=== PATIENT | female | born 1960 | race Hispanic/Latino ===

== ENCOUNTER 2017-06-11 23:26 | Emergency (ER) | payer OTHER ==
[2017-06-11] MEDS ORDERED: METOPROLOL TARTRATE 1 MG/ML 5ML VIAL IV ONE (23:48)
[2017-06-11] MEDS ORDERED: HYDROXYZINE HCL 25 MG TABLET ONE (23:48)
== END 2017-06-12 01:04 | disposition home or self-care (01) ==
LOC: EDH 23:26
DX: F41.9 Anxiety disorder, unspecified (principal); E78.5 Hyperlipidemia, unspecified; I10 Essential (primary) hypertension; Z88.5 Allergy status to narcotic agent; Z88.6 Allergy status to analgesic agent; V49.49XA Driver injured in collision with other motor vehicles in traffic accident, initial encounter; Y93.89 Activity, other specified; Y92.89 Other specified places as the place of occurrence of the external cause; Y99.8 Other external cause status
CPT/HCPCS: 71045; 93005; 96374; 99284; J3490

== ENCOUNTER 2022-07-05 13:44 | Emergency (ER) | payer OTHER ==
[~2022-07-05] VITALS: Ht 154.9 cm; Wt 70.3 kg
[2022-07-05 14:37] LABS: BILIRUBIN,URINE 0.5 mg/dL (NEGATIVE); COLOR,URINE DARK-YELLOW (YELLOW); GLUCOSE, URINE (UA) NEGATIVE (NEGATIVE); KETONES,URINE 150 mg/dL (NEGATIVE); LEUKOCYTE ESTERASE ,URINE 250 Leu/uL (NEGATIVE); NITRATE,URINE NEGATIVE (NEGATIVE); OCCULT BLOOD,URINE MODERATE (NEGATIVE); PH,URINE 5.5 (5.0-8.0); PROTEIN,URINE 30 mg/dL (NEGATIVE); UROBILINOGEN,URINE 3 mg/dL (0.2-1.0)
[2022-07-05 14:42] LABS: APPEARANCE,URINE HAZY (CLEAR)
[2022-07-05 14:50] LABS: BACTERIA,URINE FEW /HPF (None Seen); MUCUS,URINE MANY LPF (None Seen); RBC,URINE 26-50 /HPF (0-1); SQUAMOUS EPITHELIAL CELL,UR MANY /HPF (0-2)
[2022-07-05] MEDS ORDERED: ONDANSETRON 4MG INJ IV ONE (15:00)
[2022-07-05] MEDS ORDERED: FENTANYL CITRATE PF 50 MCG/1 ML 2ML VIAL IVP ONE (15:00)
[2022-07-05 15:04] LABS: BASOPHILS % (AUTO) 0.2 % (0.0-5.0); EOSINOPHILS % (AUTO) 0.5 % (0.0-8.0); HEMATOCRIT 44.8 % (36-48); LYMPHOCYTES % (AUTO) 20.3 % (21.0-51.0); MEAN CORPUSCULAR HEMOGLOBIN 29.3 pg (27.0-33.0); MEAN CORPUSCULAR HGB CONC 33.5 g/dL (32.0-36.0); MEAN CORPUSCULAR VOLUME 87.5 fL (79-99); MONOCYTES % (AUTO) 5.9 % (3.0-13.0); NEUTROPHILS % (AUTO) 72.7 % (40.0-77.0); PLATELET COUNT (AUTO) 278 K/uL (130-400); RED BLOOD CELL COUNT(AUTO) 5.12 MIL/uL (4.00-5.50); RED CELL DISTRIBUTION WIDTH 13.3 % (11.0-15.5); WHITE BLOOD COUNT (AUTO) 14.7 K/uL (4.8-10.8)
[2022-07-05 15:16] LABS: POTASSIUM 3.6 mmol/L (3.5-5.1)
[2022-07-05 15:20] LABS: ALBUMIN 3.7 g/dL (3.5-5.0); TOTAL PROTEIN, SERUM 8.4 g/dL (6.0-8.3)
[2022-07-05] MEDS ORDERED: IOHEXOL-350 75 ML VIAL IV ONE (15:52)
[2022-07-05] MEDS ORDERED: ZOSYN 3.375GM +NS 50ML IVPB SCH (16:30)
[2022-07-05] MEDS ORDERED: METR375C2 PO (16:39)
[2022-07-05] MEDS ORDERED: OXYC-38 PO (16:39)
[2022-07-05] MEDS ORDERED: DOCU-116 PO (16:39)
[2022-07-05] MEDS ORDERED: CIPR-278 PO (16:39)
[2022-07-05 16:50] VITALS: BP 132/78
== END 2022-07-05 17:00 | disposition home or self-care (01) ==
LOC: EDH 13:44
DX: K57.32 Diverticulitis of large intestine without perforation or abscess without bleeding (principal); R10.32 Left lower quadrant pain; I10 Essential (primary) hypertension; E78.00 Pure hypercholesterolemia, unspecified; Z88.8 Allergy status to other drugs, medicaments and biological substances; Z90.710 Acquired absence of both cervix and uterus; Z90.49 Acquired absence of other specified parts of digestive tract
CPT/HCPCS: 99285; 74177; 96365; 96375; 80053; 85025; 87077; 87088; 87186; 81001; 36415; J3010; J2405; J2543; Q9967

== ENCOUNTER 2024-10-04 12:57 | Emergency (ER) | payer OTHER ==
[~2024-10-04] VITALS: Ht 154.9 cm; Wt 70.3 kg
[~2024-10-04 12:57] MED LIST: CIPR-278 PO; DOCU-116 PO; METR375C2 PO; OXYC-38 PO
[2024-10-04 13:49] LABS: APPEARANCE,URINE CLOUDY (CLEAR); GLUCOSE, URINE (UA) NEGATIVE (NEGATIVE); LEUKOCYTE ESTERASE ,URINE 500 Leu/uL (NEGATIVE); NITRATE,URINE NEGATIVE (NEGATIVE); OCCULT BLOOD,URINE MODERATE (NEGATIVE)
[2024-10-04 13:57] LABS: ADD UA MICROSCOPIC YES
[2024-10-04 14:00] LABS: SQUAMOUS EPITHELIAL CELL,UR FEW /HPF (0-2)
--- NOTE | 2024-10-04 14:09 | EKG ---
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
[2024-10-04 14:24] LABS: IMMATURE GRANULOCYTE ABSOLUTE 0.02 K/uL (0-1); NUCLEATED RED BLOOD CELLS 0.0 % (0.0-0.19); PLATELET COUNT (AUTO) 292 K/uL (130-400); RED BLOOD CELL COUNT(AUTO) 5.07 MIL/uL (4.00-5.50); RED CELL DISTRIBUTION WIDTH 13.4 % (11.0-15.5); WHITE BLOOD COUNT (AUTO) 8.4 K/uL (4.8-10.8)
[2024-10-04 14:31] LABS: CREATININE 0.8 mg/dL (0.5-1.0); GLOMERULAR FILTR. RATE CALC 83.0 mL/min (>90); GLUCOSE,RANDOM 123.0 mg/dL (70-105); SODIUM SERUM 141.0 mmol/L (136-145); UREA NITROGEN, BLOOD 11.0 mg/dL (7-18)
[2024-10-04 14:33] LABS: INR 1.08 (0.85-1.15)
[2024-10-04 14:42] LABS: CREATINE KINASE, TOTAL 51.0 U/L (21-232)
--- NOTE | 2024-10-04 14:51 | HMCIMG ---
EXAM: CR Chest, 1 View. CLINICAL HISTORY: CP COMPARISON: 06/11/2017 FINDINGS: LUNGS: There is no mass, infiltrate, or acute pulmonary abnormality. PLEURAL SPACES: No evidence of pleural effusion or pneumothorax. MEDIASTINUM: The cardiomediastinal silhouette is within normal limits. BONES: No acute osseous abnormality. IMPRESSION: No acute cardiopulmonary pathology is evident. No significant change. /[place]
--- NOTE | 2024-10-04 15:08 | HMCIMG ---
EXAM: CT Head Without IV contrast. CLINICAL HISTORY: LEFT SIDED WEAKNESS TECHNIQUE: Axial computed tomography images of the head/brain without intravenous contrast. COMPARISON: None provided. FINDINGS: BRAIN: Age-related cerebral atrophy in the form of prominence of sulco-gyral spaces and dilatation of bilateral lateral ventricles. No evidence of acute hemorrhage. No mass lesion. No CT evidence for acute territorial infarct. No midline shift or extra-axial collections. ORBITS: The orbits are unremarkable. SINUSES AND MASTOIDS: The paranasal sinuses and mastoid air cells are clear. BONES: No fracture. SOFT TISSUES: Unremarkable. IMPRESSION: 1. No acute intracranial findings. /[place]
[2024-10-04] MEDS: 0.9%NACL 1000ML 1,000 ML IV ONE (15:26)
[2024-10-04] MEDS ORDERED: CEPH500B PO (16:03)
--- NOTE | 2024-10-04 16:03 | ERN ---
General Chief Complaint: Weakness Stated Complaint: WEAKNESS IN RIGHT SIDE, FAST HEART RATE Time Seen by MD: 12:59 Source: patient History of Present Illness Initial Comments PATIENT IS A 63-YEAR-OLD FEMALE COMING IN COMPLAINING OF GENERALIZED BODY WEA KNESS. PER PATIENT SHE WAS A LITTLE CONCERNED BECAUSE EARLIER TODAY SHE HAD MORE PRONOUNCED RIGHT LOWER EXTREMITY WEAKNESS. SHE ALSO STATES THAT SHE DOES FEEL VERY THIRSTY IN HIS NOTICED WEAKNESS IN HER LEFT LEG AND BILATERAL UPPER EXTREMITIES. PATIENT IS A ALERT AND ORIENTED. Allergies: Coded Allergies: codeine (Unverified Allergy, Unknown, 07/05/22) morphine (Unverified Allergy, Unknown, 07/05/22) Home Meds Active Scripts Cephalexin Monohydrate (Keflex) 500 Mg Cap, 1 CAP PO BID for 7 Days, #14 CAP 0 Refills Prov:SUJIT ROMAN MD 10/04/24 Docusate Sodium (Colace) 100 Mg Capsule, 100 MG PO TID for constipation, #30 CAP 0 Refills Prov:RENNY HUTTON MD 07/05/22 Metronidazole (Flagyl) 375 Mg Capsule, 375 MG PO TID for 10 Days, #21 CAP 0 Refills Prov:RENNY HUTTON MD 07/05/22 Oxycodone HCl/Acetaminophen (Percocet 5-325 mg Tablet) 1 Each Tablet, 1 EACH PO Q6H for pain, #16 TAB 0 Refills Prov:RENNY HUTTON MD 07/05/22 Ciprofloxacin HCl (Cipro) 500 Mg Tablet, 1.5 TAB PO BID for 10 Days, #30 TAB 0 Refills Prov:RENNY HUTTON MD 07/05/22 Past Medical History Past Medical History: High Cholesterol, Hypertension Medical History Other: NON COMPLIANT W/MEDS Past Surgical History: Hysterectomy, Cholecystectomy Surgical History Other: KNEE SX Social History Social History: Negative ROS Dictation CONSTITUTIONAL: NO CHILLS, NO FEVER, NO WEAKNESS, NO DIAPHORESIS, NO MALAISE. HEAD/FACE: NO SIGNS OF TRAUMA. EENT: NO EYE PAIN, NO BLURRED VISION, NO TEARING, NO DOUBLE VISION, NO EAR PAIN, NO EAR DISCHARGE, NO NOSE PAIN, NO NASAL CONGESTION, NO THROAT PAIN, NO THROAT SWELLING, NO MOUTH PAIN. RESPIRATORY: NO COUGH, NO ORTHOPNEA, NO SOB, NO STRIDOR, NO WHEEZING. CARDIOVASCULAR: NO CHEST PAIN, NO EDEMA, NO PALPITATIONS, NO SYNCOPE. GASTROINTESTINAL/ABDOMINAL: NO ABDOMINAL PAIN, NO CONSTIPATION, NO DIARRHEA, NO NAUSEA, NO VOMITING. GENITOURINARY: NO ABNORMAL DISCHARGE, NO DYSURIA, NO FREQUENT URINATION, NO HEMATURIA. NO COMPLAINTS OF PAIN IN THE GENITALS. MUSCULOSKELETAL: NO BACK PAIN, NO GOUT, NO JOINT PAIN, NO JOINT SWELLING, NO MUSCLE PAIN, NO MUSCLE STIFFNESS, NO NECK PAIN. INTEGUMENTARY: NO CHANGE IN COLOR, NO CHANGE IN HAIR/NAILS, NO DRYNESS, NO LESION, NO LUMPS, NO RASH. NEUROLOGICAL/PSYCH: NO ANXIETY, NOT DEPRESSED, NO EMOTIONAL PROBLEM, NO HEADACHE, NO NUMBNESS, NO PRE-EXISTING DEFICIT, NO HISTORY OF SEIZURES, NO TREMORS, NO WEAKNESS. HEMATOLOGIC/LYMPHATIC: NOT ANEMIC, NO HISTORY OF BLOOD CLOTS, NO APPARENT BLEEDING, NO BRUISING, GLANDS NOT SWOLLEN. ALL SYSTEMS NEGATIVE, EXCEPT NOTED. Physical Exam Physical Exam Dictation VITAL SIGNS: REVIEWED. GENERAL APPEARANCE: ALERT, ORIENTED X3, NO ACUTE DISTRESS, OBESE. HEAD AND FACE: NON-TRAUMATIC. EYES: PERRL, PINK CONJUNCTIVAS, EYELID NO TRAUMA, ANTERIOR CHAMBER CLEAR. EARS: PINNAS INTACT AND NO SIGNS OF TRAUMA OR ERYTHEMA. EAR CANALS CLEAR AND NO DISCHARGE. TMS NO ERYTHEMA. NOSE: NO DISCHARGE, NO BLEEDING. OROPHARYNX: MOUTH NORMAL, TEETH NO CARIES, TONGUE PINK. PHARYNX CLEAR, NO ERYTHEMA. TONSILS NO EXUDATES, NO ABSCESSES NOTED. MUCOUS MEMBRANE MOIST. NECK: SUPPLE, NON-TENDER, NO THYROMEGALY, NO MASSES, NO JVD, NO BRUITS. BREAST: DEFERRED. CHEST: NO TENDERNESS, NO CREPITUS, NO PARADOXICAL MOVEMENT, NO RETRACTIONS. LUNGS: CLEAR, WELL-VENTILATED, SYMMETRIC, NO RALES, NO WHEEZING, NO RHONCHI, NO STRIDOR, GOOD BREATH SOUNDS BILATERALLY. HEART: REGULAR RATE, REGULAR RHYTHM, NO MURMUR, NO GALLOPS. VASCULAR: NO PERIPHERAL EDEMA. ABDOMEN: SOFT, POSITIVE BOWEL SOUNDS, NONDISTENDED, NO GUARDING, NONTENDER, NO REBOUND, NO MASSES NO HEPATOMEGALY, NO SPLENOMEGALY, NO RODAS'S SIGN, NO HERNIAS. RECTAL: DEFERRED. GENITAL: DEFERRED. NEUROLOGICAL: NORMAL SPEECH, GROSS MOTOR FUNCTION INTACT, GROSS SENSORY FUNCTION INTACT. MUSCULOSKELETAL: NECK NONTENDER, FULL RANGE OF MOTION, BACK NONTENDER, FULL RANGE OF MOTION. EXTREMITIES: NONTENDER, FULL RANGE OF MOTION. SKIN: COLOR PINK, DRY, NO TURGOR, NO RASH, NO LACERATIONS, NO ABRASIONS, NO CONTUSIONS. LYMPHATICS: DEFERRED. NIH STROKE SCALE: NIH STROKE SCALE Response (Comments) Value Level of Consciousness Alert 0 Ask patient month and their age Answers both correct 0 Command to open eyes, make fist and let go Obeys both correct 0 Visual Field Testing No Visual Field Loss 0 Facial Paresis Normal / Symmetrical 0 Motor Function - Left Arm Normal 0 Motor Function - Right Arm Normal 0 Motor Function - Left Leg Normal 0 Motor Function - Right Leg Normal 0 Limb Ataxia No Ataxia 0 Sensory-pin prick to arms, legs, trunk and face Normal 0 Best Language (describe picture, name items and read) No Aphasia 0 Dysarthria (read several words) Normal Articulation 0 Total Results Laboratory and Microbiology Lab and Micro Result Laboratory Tests Test 10/04/24 13:28 10/04/24 13:47 Urine Color YELLOW (YELLOW) Urine Appearance CLOUDY (CLEAR) H Urine pH 5.5 (5.0-8.0) Urine Specific [place] 1.016 (1.001-1.031) Urine Protein NEGATIVE mg/dL (NEGATIVE) Urine Glucose (UA) NEGATIVE mg/dL (NEGATIVE) Urine Ketones 5 mg/dL (NEGATIVE) H Urine Occult Blood MODERATE (NEGATIVE) H Urine Nitrate NEGATIVE (NEGATIVE) Urine Bilirubin NEGATIVE mg/dL (NEGATIVE) Urine Urobilinogen 0.2 mg/dL (0.2-1.0) Urine Leukocyte Esterase 500 Bc/uL (NEGATIVE) H Urine RBC 6-10 /HPF (0-1) H Urine WBC 26-50 /HPF (0-1) H Urine Squamous Epithelial Cells FEW /HPF (0-2) Urine Bacteria MANY /HPF (None Seen) White Blood Count 8.4 K/uL (4.8-10.8) Red Blood Count 5.07 MIL/uL (4.00-5.50) Hemoglobin 14.7 g/dL (12.0-16.0) Hematocrit 44.2 % (36-48) Mean Corpuscular Volume 87.2 fL (79-99) Mean Corpuscular Hemoglobin 29.0 pg (27.0-33.0) Mean Corpuscular Hemoglobin Concent 33.3 g/dL (32.0-36.0) Red Cell Distribution Width 13.4 % (11.0-15.5) Platelet Count 292 K/uL (130-400) Mean Platelet Volume 10.3 fL (7.5-10.5) Immature Granulocyte % (Auto) 0.2 % (0-1) Neutrophils (%) (Auto) 66.5 % (40.0-77.0) Lymphocytes (%) (Auto) 26.0 % (21.0-51.0) Monocytes (%) (Auto) 5.0 % (3.0-13.0) Eosinophils (%) (Auto) 1.8 % (0.0-8.0) Basophils (%) (Auto) 0.5 % (0.0-5.0) Neutrophils # (Auto) 5.6 K/uL (1.8-7.7) Lymphocytes # (Auto) 2.2 K/uL (1.0-4.8) Monocytes # (Auto) 0.4 K/uL (0.1-1.0) Eosinophils # (Auto) 0.15 K/uL (0.00-0.70) Basophils # (Auto) 0.04 K/uL (0.00-0.20) Absolute Immature Granulocyte (auto 0.02 K/uL (0-1) Nucleated Red Blood Cells 0.0 % (0.0-0.19) Prothrombin Time 11.4 SEC (9.6-11.6) Prothromb Time International Ratio 1.08 (0.85-1.15) Sodium Level 141 mmol/L (136-145) Potassium Level 3.7 mmol/L (3.5-5.1) Chloride Level 103 mmol/L (101-111) Carbon Dioxide Level 30 mmol/L (21-32) Blood Urea Nitrogen 11 mg/dL (7-18) Creatinine 0.8 mg/dL (0.5-1.0) Glomerular Filtration Rate Calc 83 mL/min (>90) Random Glucose 123 mg/dL (70-105) H Total Calcium 9.3 mg/dL (8.5-10.1) Total Creatine Kinase 51 U/L (21-232) Troponin I High Sensitivity 4 ng/L (4-50) Labs Reviewed?: Yes EKG/XRAY/US/CT/MRI EKG Comment 10/04/2024 TIME 1:53 P.M. VENTRICULAR RATE 90 SINUS RHYTHM CO [address] WAVE ELEVATION OR DEPRESSION X-RAY Comment IMAGING REPORT Signed PATIENT: MARC ROSALES MR#: [id number] : 1960 SEX: F AGE: 63 LOCATION: [facility] ORDER 04 STATUS: [facility] REPORT#: [id number] SERVICE 1347 REASON: CP ORDERING PHYSICIAN: SUJIT ROMAN MD PROCEDURE: CXR1VW - CHEST 1VW EXAM: CR Chest, 1 View. CLINICAL HISTORY: CP COMPARISON: 06/11/2017 FINDINGS: LUNGS: There is no mass, infiltrate, or acute pulmonary abnormality. PLEURAL SPACES: No evidence of pleural effusion or pneumothorax. MEDIASTINUM: The cardiomediastinal silhouette is within normal limits. BONES: No acute osseous abnormality. IMPRESSION: No acute cardiopulmonary pathology is evident. No significant change. /[place] DICTATED BY: GITA SAGASTUME MD DATE: 10/04/241549 ELECTRONICALLY SIGNED BY: GITA SAGASTUME MD DATE: 10/04/241549 CT Scan Comment IMAGING REPORT Signed PATIENT: MARC ROSALES MR#: [id number] : 1960 SEX: F AGE: 63 LOCATION: [facility] ORDER 04 STATUS: [facility] ER REPORT#: [id number] SERVICE 1347 REASON: LEFT SIDED WEAKNESS ORDERING PHYSICIAN: SUJIT ROMAN MD PROCEDURE: HEAD WO - CT HEAD/BRAIN W/O CONTRAST EXAM: CT Head Without IV contrast. CLINICAL HISTORY: LEFT SIDED WEAKNESS TECHNIQUE: Axial computed tomography images of the head/brain without intravenous contrast. COMPARISON: None provided. FINDINGS: BRAIN: Age-related cerebral atrophy in the form of prominence of sulco-gyral spaces and dilatation of bilateral lateral ventricles. No evidence of acute hemorrhage. No mass lesion. No CT evidence for acute territorial infarct. No midline shift or extra-axial collections. ORBITS: The orbits are unremarkable. SINUSES AND MASTOIDS: The paranasal sinuses and mastoid air cells are clear. BONES: No fracture. SOFT TISSUES: Unremarkable. IMPRESSION: 1. No acute intracranial findings. /[place] DICTATED BY: JOVITA RAYMOND MD DATE: 10/04/241606 ELECTRONICALLY SIGNED BY: JOVITA RAYMOND MD DATE: 10/04/241606 MDM MDM: DIFFERENTIAL DIAGNOSIS: UTI, GENERALIZED BODY WEAKNESS, DEHYDRATION, CVA, RATIONALE: TESTS CONSIDERED AND ORDERED SECONDARY TO SHARED DECISION MAKING INCLUDE: PREVIOUS OUTSIDE RECORDS REVIEWED: OLD ER VISITS. RISK OF COMPLICATION AND/OR MORBIDITY OR MORTALITY OF PATIENT MANAGEMENT: NONE MEDICATIONS-PER MEDICATION RECONCILIATION NEED FOR HOSPITALIZATION: PATIENT DOES NOT MEET CRITERIA FOR HOSPITALIZATION. PATIENT IS A 64-YEAR-OLD FEMALE COMING IN TO BE EVALUATED FOR RIGHT-SIDED UPPER AND LOWER EXTREMITY WEAKNESS. PATIENT STATES THAT THOSE SYMPTOMS WERE PRESENT TODAY. PRIOR TO THIS HE STATES THAT SHE HAS BEEN HAVING LOWER EXTREMITY AND UPPER EXTREMITY WEAKNESS WELL ON THE OPPOSITE SIDE. PATIENT DID NOT INITIALLY DISCLOSE THIS MORE CONCERNED FOR AN ACUTE CVA CT OF THE HAD TO BE PERFORMED TO RULE OUT ANY ABNORMALITY. PATIENT WAS FOUND TO HAVE A URINARY TRAC T INFECTION IV FLUID WAS GIVEN WELL SO SHE WAS PRESENTING WITH DEHYDRATION SHE STATES HE FEELS MUCH BETTER WILL BE DISCHARGED IN STABLE CONDITION WITH A DIAGNOSIS OF UTI AND DEHYDRATION ED Course Orders Procedure Category Date Status Time Urinalysis Profile LAB 10/04/24 Complete Catherized 13:34 Cbc With Differential LAB 10/04/24 Complete 13:34 Prothrombin Time With LAB 10/04/24 Complete INR 13:47 Chest 1vw RAD 10/04/24 Resulted 13:47 12 Lead Ekg Tracing- EKG 10/04/24 Complete Technical 13:47 Creatine Kinase, Total LAB 10/04/24 Complete 13:47 Troponin I High LAB 10/04/24 Complete Sensitivity 13:47 Basic Metabolic Panel LAB 10/04/24 Complete 13:47 Ct Head/Brain W/O CT 10/04/24 Resulted Contrast 13:47 Culture Urine JAIME 10/04/24 In Process 13:57 Ceftriaxone 1g Vial PHA 10/04/24 Complete (Rocephine 1g Inj) 15:30 0.9%Nacl 1000ml (Ns PHA 10/04/24 Complete 1000ml) 15:30 Current Medications Medications (Trade) Dose Ordered Sig/[place] Route PRN Reason Start Time Stop Time Status Last Admin Dose Admin Ceftriaxone Sodium (ROCEphine 1G INJ) 1 gm ONCE ONCE IVPB 10/04/24 15:30 10/04/24 15:31 DC 10/04/24 15:26 Sodium Chloride 1,000 ml @ 0 mls/hr ONCE ONCE IV 10/04/24 15:30 10/04/24 15:31 DC 10/04/24 15:26 Vital Signs Date Time Temp Pulse Resp B/P (MAP) Pulse Ox O2 Delivery O2 Flow Rate FiO2 10/04/24 15:44 99.0 77 18 130/76 98 Room Air* 0 10/04/24 15:06 99.1 90 18 148/92 99 Room Air* 0 10/04/24 13:50 99.1 91 18 145/85 98 Room Air* 0 10/04/24 13:21 98 18 94 Room Air* 0 10/04/24 13:00 99.5 111 18 141/91 98 Room Air 0 DX & DISP Disposition: Discharge Departure Impression: Primary Impression: UTI (urinary tract infection) Additional Impression: Dehydration Condition: Stable Scripts Cephalexin Monohydrate (Keflex) 500 Mg Cap 1 CAP PO BID for 7 Days, #14 CAP 0 Refills Prov: SUJIT ROMAN MD 10/04/24 Additional Instructions: FOLLOW-UP WITH PRIMARY CARE PROVIDER IN 1 TO 2 DAYS. TAKE MEDICATIONS DIRECTED HERE IN THE EMERGENCY ROOM. OKAY TO CONTINUE HOME MEDICATIONS UNLESS OTHERWISE DISCUSSED DURING YOUR VISIT IN THE EMERGENCY ROOM TODAY. RETURN TO YOUR NEAREST EMERGENCY ROOM IF SYMPTOMS WORSEN OR IF THERE IS NO IMPROVEMENT. CALL 911 IF YOU NEED IMMEDIATE ASSISTANCE. TAKE TYLENOL BTOJ-DHS-AJISADM NEEDED AND IF NO CONTRAINDICATIONS ARE PRESENT. INCREASE ORAL HYDRATION. A WOUND CULTURE OR URINE CULTURE WAS ORDERED HERE IN THE EMERGENCY ROOM DEPARTMENT PLEASE FOLLOW-UP WITH PRIMARY CARE PROVIDER AND ADVISE THEM TO GET REPORTS FROM OUR FACILITY. IF YOU HAD ANY KIRAN WRAP/SPLINTS THAT WERE APPLIED HERE, PLEASE DO NOT REMOVE THEM UNTIL YOU SEE YOUR PRIMARY CARE OR SPECIALTY. REFERRALS: Referrals: SHAYNE LOJA (PCP) Time of Disposition: 16:02 SUJIT ROMAN MD Oct 04, 2024 16:03
[2024-10-04 16:30] VITALS: BP 138/83; PULSE 75; RESP 18; TEMP 98.3; O2SAT 98
--- NOTE | 2024-10-05 08:26 | EKG ---
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
== END 2024-10-04 16:35 | disposition home or self-care (01) ==
LOC: EDH 12:57
DX: N39.0 Urinary tract infection, site not specified (principal); E86.0 Dehydration; E78.00 Pure hypercholesterolemia, unspecified; I10 Essential (primary) hypertension; Z88.5 Allergy status to narcotic agent; Z90.49 Acquired absence of other specified parts of digestive tract; Z90.710 Acquired absence of both cervix and uterus; Z79.899 Other long term (current) drug therapy
CPT/HCPCS: 99285; 96365; 70450; 71045; 82550; 84484; 80048; 85025; 85610; 87086 ×2; 87186; 81001; 36415; 93005 ×2; J7030; J0696